=== PATIENT | female | born 2000 | race African-American/Black ===

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

== ENCOUNTER 2020-04-06 11:51 | Emergency (ER) | payer OTHER ==
[2020-04-06 12:20] VITALS: TEMP 98.6; BMI 18.1
--- NOTE | 2020-04-06 13:14 | PDOC ---
History of Present Illness - General Chief Complaint: Pain Stated Complaint: BACK PAIN Time Seen by Provider: 04/06/20 12:40 History Source: Patient Exam Limitations: No Limitations - History of Present Illness Travel History: No Initial Comments: 04/06/20 13:09 HISTORY OF PRESENT ILLNESS: 19-year-old girl with history of thyroid cyst status post thyroidectomy presents emergency department for evaluation of sudden onset right-sided upper abdomen pain radiating to her right mid back. Patient reports the pain came on suddenly reported was a sharp sensation. Patient took Naprosyn 440 mg orally reports her pain is now under control. She states the pain worsens when she changes position most notably from sitting to standing. She denies any nausea, vomiting, dysuria, hematuria, vaginal bleeding or discharge. No recent travel or sick contacts. PAST MEDICAL HISTORY: Thyroid cyst SURGICAL HISTORY: Thyroidectomy ALLERGIES: No known drug allergies REVIEW OF SYSTEMS General/Constitutional: Denies fever or chills. Denies weakness, weight change. HEENT: Denies change in vision. Denies ear pain or discharge. Denies sore throat. Cardiovascular: Denies chest pain or shortness of breath. Respiratory: Denies cough, wheezing, or hemoptysis. Gastrointestinal: See HPI Genitourinary: Denies dysuria, frequency, or change in urination. Musculoskeletal: Denies joint or muscle swelling or pain. Denies neck or back pain. Skin and breasts: Denies rash or easy bruising. Neurologic: Denies headache, vertigo, loss of consciousness, or loss of sensation. Psychiatric: Denies depression or anxiety. Endocrine: Denies increased thirst. Denies abnormal weight change. Hematologic/Lymphatic: Denies anemia, easy bleeding, or history of blood clots. Allergic/Immunologic: Denies hives or skin allergy. Denies latex allergy. PHYSICAL EXAM General Appearance: Well-appearing, appropriately dressed. No apparent distress, no intoxication. Respiratory/Chest: Lungs CTAB. No shortness of breath, chest tenderness, respiratory distress, accessory muscle use. No crackles, rales, rhonchi, stridor, wheezing, dullness Cardiovascular: RRR. S1, S2. No JVD, murmur, bradycardia, tachycardia. Gastrointestinal/Abdominal: Normal bowel sounds. Abdomen soft, non-distended. No tenderness or rebound tenderness. No organomegaly, pulsatile mass, guarding, hernia, hepatomegaly, splenomegaly. Musculoskeletal/Extremities: Normal inspection. FROM of all extremities, normal capillary refill. Pelvis Stable. No CVA tenderness. No tenderness to extremities, pedal edema, swelling, erythema or deformity. Past History - Medical History Allergies/Adverse Reactions: Allergies Allergy/AdvReac Type Severity Reaction Status Date / Time No Known Allergies Allergy Verified 04/06/20 12:11 Home Medications: Ambulatory Orders levoFLOXacin [Levaquin -] 500 mg PO DAILY #7 tablet 04/06/20 COPD: No Thyroid Disease: Yes (LEFT THYROIDECTOMY) - Reproductive History Is Patient Now?: No - Immunization History Immunization Up to Date: Yes - Psycho-Social/Smoking History Smoking History: Never smoked Have you smoked in the past 12 months: No - Substance Abuse Hx (Audit-C & DAST Scrn) How often the patient has a drink containing alcohol: Monthly or less Score: In Men: 4 or > Positive; In Women: 3 or > Positive: 1 Screen Result (Pos requires Nsg. Audit-10AR): Negative In the last yr the pt used illegal drug/Rx for NonMed reason: No Score: Yes response is considered Positive: 0 Screen Result (Positive result requires Nsg. DAST-10): Negative *Physical Exam - Vital Signs Last Vital Signs Temp Pulse Resp BP Pulse Ox 98.6 F 75 18 131/85 96 04/06/20 12:11 04/06/20 12:11 04/06/20 12:11 04/06/20 12:11 04/06/20 12:11 ED Treatment Course - LABORATORY CBC & Chemistry Diagram: 04/06/20 13:40 04/06/20 13:40 - RADIOLOGY Radiology Studies Ordered: Category Date Time Status ABDOMEN US -LIMITED [US] Stat Ultrasound 04/06/20 13:01 Ordered Medical Decision Making - Medical Decision Making 04/06/20 13:13 A/P: 19-year-old girl with sudden onset right mid back/flank/right upper quadrant pain this afternoon Physical exam is grossly unremarkable Differential diagnosis includes but is not limited to-gallstones, cholecystitis, musculoskeletal pain, renal calculi, pyelonephritis Labs Urinalysis, urine , urine culture Limited abdominal ultrasound Reassess 04/06/20 16:32 Laboratory Tests 04/06/20 04/06/20 04/06/20 13:40 13:40 14:00 WBC 4.4 RBC 4.57 Hgb 13.8 Hct 39.4 MCV 86.2 MCH 30.1 MCHC 34.9 RDW 12.8 Plt Count 336 MPV 7.9 Absolute Neuts (auto) 2.4 Neutrophils % 55.6 D Lymphocytes % 34.6 D Monocytes % 7.0 Eosinophils % 2.1 Basophils % 0.7 Nucleated RBC % 0 Sodium 139 Potassium 4.2 Chloride 107 Carbon Dioxide 26 Anion Gap 6 L BUN 13.1 Creatinine 0.8 Est GFR (CKD-EPI)AfAm 123.87 Est GFR (CKD-EPI)NonAf 106.88 Random Glucose 71 L Calcium 9.2 Total Bilirubin 0.4 AST 16 ALT 15 Alkaline Phosphatase 75 Total Protein 7.7 Albumin 4.4 Lipase 94 TSH 2.13 Free T4 0.92 Urine Color Dk yellow Urine Appearance Cloudy Urine pH 5.5 Ur Specific [place] 1.029 Urine Protein 2+ H Urine Glucose (UA) Negative Urine Ketones Trace H Urine Blood 3+ H Urine Nitrite Negative Urine Bilirubin Negative Urine Urobilinogen 1.0 Ur Leukocyte Esterase Trace Urine WBC (Auto) 53 Urine RBC (Auto) 4535 Urine Casts (Auto) 4 U Epithel Cells (Auto) 28 Urine Bacteria (Auto) 92364 Urine HCG, Qual Negative Ultrasound is read by Dr. Vazquez: Gallbladder is adequately distended without intraluminal stones or thickening of its wall. No intra-or extrahepatic biliary duct dilatation is seen. There is mild right renal hydronephrosis and minimal fullness of the left renal pelvicalyceal system. Ultrasound results combined with urinalysis leaves possibility for renal calculi. Noncontrast CT of the abdomen to rule out kidney stones If negative for kidney stones I will treat for pyelonephritis. 04/06/20 18:44 CT of the abdomen and pelvis is read by imaging on-call: Likely a 3 x 5 mm calculus at the right ureter proximally with mild hydronephrosis. Small right renal calculus seen in images 32/131 and mild right hydro- calcinosis. I will contact urology on-call. 04/06/20 18:51 Dr. Gerardo of urology has been paged. 04/06/20 19:12 Case has been discussed with Dr. Gerardo who recommends patient receive a dose of ceftriaxone here and discharged home on Levaquin. Ceftriaxone 1 g IV Discharge home with urology follow-up. I discussed the physical exam findings, ancillary test results and final diagnoses with the patient. I answered all of the patient's questions. The patient was satisfied with the care received and felt comfortable with the discharge plan and treatment plan. The patient will call their primary care physician within 24 hours to arrange follow-up and will return to the Emergency Department with any new, persistent or worsening symptoms. Portions of this note have been documented using voice recognition software. As a result, errors may occur in the seaming machine operator process. Effort has been made to correct all grammatical and seaming machine operator error, but some may have been missed which may produce sporadic inaccurate seaming machine operator or nonsensical phrases. Discharge - Discharge Information Problems reviewed: Yes Clinical Impression/Diagnosis: Kidney stone on right side UTI (urinary tract infection) Qualifiers: Urinary tract infection type: site unspecified Hematuria presence: with hematuria Qualified Code(s): N39.0 - Urinary tract infection, site not specified Condition: Fair Disposition: HOME - Admission No - Additional Discharge Information Prescriptions: levoFLOXacin [Levaquin -] 500 mg PO DAILY #7 tablet - Follow up/Referral Referrals: Lan Garcia [Primary Care Provider] - Jose Gerardo MD., [Staff Physician] - - Patient Discharge Instructions Additional Instructions: Rest, drink lots of fluids: Teas, water, soups Avoid contact with others until fevers and symptoms resolved Lots of handwashing and good hygiene Continue [id number] medications for symptomatic relief Tylenol or Motrin for fever and pain Continue all of antibiotics until completed Followup with urology on Wednesday for repeat urinalysis/reevaluation Return to emergency department for worsened symptoms, fevers, dehydration - Post Discharge Activity
[2020-04-06 14:03] LABS: BASO % 0.7 % (0-2.0); EOS % 2.1 % (0-4.5); HEMATOCRIT 39.4 % (32.4-45.2); HEMOGLOBIN 13.8 GM/dL (10.7-15.3); LYMPH % 34.6 % (8-40); MCH 30.1 pg (25.7-33.7); MCHC 34.9 g/dl (32.0-36.0); MEAN CELL VOLUME 86.2 fl (80-96); MEAN PLT VOLUME 7.9 fl (7.5-11.1); NEUT % 55.6 % (42.8-82.8); PLATELET COUNT 336 K/MM3 (134-434); RBC 4.57 M/mm3 (3.60-5.2); RDW 12.8 % (11.6-15.6); WHITE BLOOD COUNT 4.4 K/mm3 (4.0-10.0)
[2020-04-06 14:37] LABS: HCG,QUALITATIVE URINE Negative
[2020-04-06 14:41] LABS: EPI CELLS 28 /uL (0-25.1); HYALINE CASTS 4 /uL (0-3.1); PH,URINE 5.5 (5.0-8.0); URINE APPEARANCE CLOUDY; URINE BILIRUBIN NEGATIVE (NEGATIVE); URINE COLOR DK YELLOW; URINE GLUCOSE (UA) NEGATIVE (NEGATIVE); URINE KETONE TRACE (NEGATIVE); URINE LEUK ESTERASE TRACE (NEGATIVE); URINE NITRITE NEGATIVE (NEGATIVE); URINE PROTEIN 2+ (NEGATIVE); URINE RBC 4535 /uL (0-23.9); URINE WBC 53 /uL (0-25.8)
[2020-04-06 14:42] LABS: URINE BACTERIA 18020 /uL (0-1359)
[2020-04-06 14:47] LABS: ALBUMIN 4.4 g/dl (3.4-5.0); BLOOD UREA NITROGEN 13.1 mg/dL (7-18); CALCIUM 9.2 mg/dL (8.5-10.1); CREATININE 0.8 mg/dL (0.55-1.3); POTASSIUM 4.2 mmol/L (3.5-5.1); TOT PROT 7.7 g/dl (6.4-8.2)
[2020-04-06 14:57] LABS: BILIRUBIN,TOTAL 0.4 mg/dL (0.2-1)
[2020-04-06] MEDS ORDERED: CEFTRIAXONE 1,000 MG in DEXTROSE 5%-WATER - 50 ML IVPB ONE (19:11)
[2020-04-06] MEDS ORDERED: CEFTRIAXONE 1 GM/50 ML BAG ONE (19:21)
[2020-04-06 19:57] VITALS: BP 124/79; PULSE 73
== END 2020-04-06 19:40 | disposition home or self-care (01) ==
LOC: JER 11:51
DX: N39.0 Urinary tract infection, site not specified (principal); N20.0 Calculus of kidney
CPT/HCPCS: 36415; 74176-TC; 76700-TC; 80053; 81003; 83690; 84439; 84443; 84481; 84703; 85025; 87086; 99285-25

== ENCOUNTER 2020-04-17 04:53 | Day surgery (SDC) | payer OTHER ==
[2020-04-16 16:06] VITALS: BMI 19.1
--- OUTSIDE RECORDS SUMMARY | 2020-04-17 04:56 | XMS ---
:2000 Author Organization [facility] Care Team Providers Name Role Phone Lovig, Cassie Unavailable Unavailable Lovig, Cassie Unavailable Unavailable Lovig, Cassie Unavailable Unavailable Lovig, Cassie Unavailable Unavailable Lovig, Cassie Unavailable Unavailable Lovig, Cassie Unavailable Unavailable Lovig, Cassie Unavailable Unavailable Re-disclosure Warning The records that you are about to access may contain information from federally- assisted alcohol or drug abuse programs. If such information is present, then the following federally mandated warning applies: This information has been disclosed to you from records protected by federal confidentiality rules (42 CFR part 2). The federal rules prohibit you from making any further disclosure of this information unless further disclosure is expressly permitted by the written consent of the person to whom it pertains or as otherwise permitted by 42 CFR part 2. A general authorization for the release of medical or other information is NOT sufficient for this purpose. The Federal rules restrict any use of the information to criminally investigate or prosecute any alcohol or drug abuse patient.The records that you are about to access may contain highly sensitive health information, the redisclosure of which is protected by Article 27-F of the [facility] Public Health law. If you continue you may haveaccess to information: Regarding HIV / AIDS; Provided by facilities licensed or operated by the [facility] Office of Mental Health; or Provided by the [facility] Office for People With Developmental Disabilities. If such information is present, then the following [facility] mandated warning applies: This information has been disclosed to you from confidential records which are protected by state law. State law prohibits you from making any further disclosure of this information without the specific written consent of the person to whom it pertains, or as otherwise permitted by law. Any unauthorized further disclosure in violation of state law may result in a fine or assisted sentence or both. A general authorization for the release of medical or other information is NOT sufficient authorization for further disclosure. Encounters Encounter Providers Location Date Indications Data Source(s ) Outpatient Attender: Cassie Salvador 02/20/2020 [facility] [place] 01:30:00 PM Hospital EDT THYROID CYST Insurance Providers Payer name Policy type Policy ID Covered Covered republican's Policy P deena / Coverage republican ID relationship to Issa Inf ormation type issa AETNA H[place] [id number] [place] [id number] [facility] [id number] - [id number] [facility] [id number] [facility] [id number] [facility] 1199 Problems, Conditions, and Diagnoses Code Display Name Description Problem Type Effective Dates Data Source(s) Z98.890 Other specified Z98.890 Diagnosis 02/20/2020 [facility] postprocedural states 01:42:00 PM ED T Hospital Z85.850 Personal history of Z85.850 Diagnosis 02/20/2020 [place] malignant neoplasm of 01:42:00 PM ED T Hospital thyroid E89.0 Postprocedural E89.0 Diagnosis 02/20/2020 [place] hypothyroidism 01:42:00 PM EDT Hospi ary E04.2 Nontoxic multinodular E04.2 Diagnosis 02/20/2020 [facility] [place] goiter 01:42:00 PM EDT Hospital E04.1 Nontoxic single E04.1 Diagnosis 02/20/2020 [place] [facility] thyroid nodule 01:42:00 PM EDT Hospi ary Results ID Date Data Source [id number] 04/12/2020 11:15:00 AM EDT [facility] Name Value Range Interpretation Description Data Sup porting Code Source(s) Document(s ) SARS [facility] coronavirus 2 RNA This lab was ordered by [facility] and reported by [facility]. ID Date Data Source [id number] 11/09/2019 08:32:00 PM EDT [facility] Name Value Range Interpretation Code Description Data Krystina rce(s) Supporting Document(s ) SARS-CoV-2 [facility] , RNA This lab was ordered by [employer] [facility] and reported by [facility]. Procedure
--- NOTE | 2020-04-17 12:46 | HP ---
History & Physical Update - History History: No Change - Physical Physical: No Change - Assessment Assessment: No Change - Plan Plan: No Change
--- NOTE | 2020-04-17 12:49 | OP ---
Operative Note - Note: Operative Date: 04/17/20 Pre-Operative Diagnosis: R ureteral calculus Operation: R ureteroscopic laser lithotripsy and JJ stent insertion Findings: R ureteral calculus, fragmented partially but retropulsed up into kidney Post-Operative Diagnosis: Same as Pre-op Surgeon: Ricki Velez Anesthesiologist/VAMP THROATER: Vania Joyner Anesthesia: General Specimens Removed: R ureteral calculus Estimated Blood Loss (mls): 0 Drains & Tubes with Location: 6 fr 22 cm R JJ stent Operative Report Dictated: Yes
[2020-04-17] MEDS ORDERED: LIDOCAINE HCL/PF 2% SDV 5ML VIAL ONE (12:58)
[2020-04-17] MEDS ORDERED: PROPOFOL 20 ML ONE (12:59)
[2020-04-17] MEDS ORDERED: MIDAZOLAM HCL 2 MG/2 ML SINGLE DOSE VIAL ONE (12:59)
[2020-04-17] MEDS ORDERED: ceFAZolin SODIUM 1 GM VIAL IVPB ONE (13:20)
[2020-04-17] MEDS ORDERED: ceFAZolin SODIUM 1 GM VIAL ONE (13:32)
[2020-04-17] MEDS ORDERED: oxyCODONE HCL 5 MG TABLET PO PRN (14:12)
[2020-04-17] MEDS ORDERED: ONDANSETRON 4 MG/2 ML VIAL IVPUSH PRN (14:12)
[2020-04-17] MEDS ORDERED: IBUPROFEN 800 MG/8 ML IJ IVPB PRN (14:12)
[2020-04-17] MEDS ORDERED: LACTATED RINGERS SOLUTION 1,000 ML IV SCH (14:15)
[2020-04-17] MEDS ORDERED: IBUPROFEN 400 MG TABLET (FP) PO ONE ×2 (16:02→16:05)
--- NOTE | 2020-04-17 17:21 | OP ---
DATE OF OPERATION: 04/17/2020 PREOPERATIVE DIAGNOSIS: Right ureteral calculus. POSTOPERATIVE DIAGNOSIS: Right ureteral calculus. PROCEDURE: Cystoscopy, right ureteroscopic laser lithotripsy, right Double J stent insertion. SURGEON: Ricki Reyes M.D. FISH CHECKER: None. ANESTHESIA: General via laryngeal mask. ANESTHESIOLOGIST: Vania Joyner MD. SPECIMENS: None. CULTURES: None. DRAINS: 6 [place], 22-cm right Double J stent. ESTIMATED BLOOD LOSS: Negligible. COMPLICATIONS: None. DESCRIPTION OF PROCEDURE: Patient was brought in the operating room, placed on the operating room table in the supine position. After administration of general anesthesia via laryngeal mask, intravenous antibiotics were administered. Sequential compression devices were placed. The patient was placed in the dorsal lithotomy position. The perineum and vagina prepped and draped in usual sterile manner. A 22-[place] cystoscope was inserted into the bladder, with the obturator in place. The obturator was removed. Urine was evacuated. A 30-degree telescope was inserted and cystoscopy was performed. This demonstrated no foreign bodies, tumors, stones, inflammation. Both ureteral orifices were in the usual location with clear efflux but diminished on the right. The right ureteral orifice was cannulated with a 0.038 guidewire, advanced to the level of the right renal pelvis under fluoroscopic and direct visual guidance. Retrograde pyelogram was done, demonstrated no visible stones. There was no hydronephrosis with injection of contrast. There was a small filling defect approximately . Now superstiff guidewire was inserted through the dual lumen catheter, which was then removed. The ureteral access sheath was inserted over the guidewire under fluoroscopic guidance over the superstiff guidewire; however, it would not go beyond the distal ureter. Now this was removed, and the flexible ureteroscope was now inserted over the superstiff guidewire which was advanced to the level of the right ureteropelvic junction. Guidewire was removed, ureteroscopy was done. The proximal ureteral calculus was visualized approximately 4 mm. Laser lithotripsy was done with a 200 micron laser fiber. The stone was fragmented and then the largest fragment was retropulsed into the kidney. The scope could not be advanced any further into the kidney to retrieve the stone, and plan will be to do a lithotripsy on her, an extracorporeal shockwave lithotripsy at a later date. Multiple attempts re-insertion of the access sheath to reach the renal collecting system were attempted, however the ureteral access sheath would not advance beyond the mid proximal ureter, nor would the ureteroscope due to the small caliber ureter without stricture. Now decision was made to put a Double J stent and come back another day for lithotripsy. The ureteroscope was removed and cystoscope back loaded, retrograde pyelogram was done demonstrated no extravasation of contrast, no hydronephrosis. The 6-[place], 24-cm, right double J stent was inserted over the guidewire under direct visual and fluoroscopic guidance leaving 1 coil in the renal pelvis and 1 coil in the bladder. She tolerated the procedure well. The bladder was emptied, and the stent was sutured to the side with suture and Tegaderm. She will follow up in the office tomorrow for stent removal. RICKI REYES M.D. [id number]
[2020-04-17 18:25] VITALS: BP 127/80; PULSE 93; TEMP 98
== END 2020-04-17 18:15 | disposition home or self-care (01) ==
LOC: JASU-SURG 04:53
PROVIDERS: ATTEND Urology
PROC: 0TC68ZZ Extirpation of Matter from Right Ureter, Via Natural or Artificial Opening Endoscopic (ICD-10-PCS; principal; 2020-04-17 13:30)
PROC: 0T768DZ Dilation of Right Ureter with Intraluminal Device, Via Natural or Artificial Opening Endoscopic (ICD-10-PCS; 2020-04-17 13:30)
DX: N20.1 Calculus of ureter (principal)
CPT/HCPCS: 76000-TC-FY; 84703; 94760

== ENCOUNTER 2020-05-07 04:17 | Day surgery (SDC) | payer OTHER ==
[2020-05-06 09:05] VITALS: BMI 19.1
--- OUTSIDE RECORDS SUMMARY | 2020-05-07 04:20 | XMS ---
:2000 Author Organization [facility] Care Team Providers Name Role Phone [...] is protected by Article 27-F of the [facility] Public Health law. If you continue you may haveaccess to information: Regarding HIV / AIDS; Provided by facilities licensed or operated by the [facility] Office of Mental Health; or Provided by the [facility] Office for People With Developmental Disabilities. If such information is present, then the following [facility] mandated warning applies: This information has been [...] law may result in a fine or custodial sentence or both. A general authorization for the release of medical or other information is NOT sufficient authorization for further disclosure. Encounters Encounter Providers Location Date Indications Data Source(s ) Outpatient Attender: Cassie Salvador 02/20/2020 [facility]ROID CYST [facility] [place] 01:30:00 PM Hospital EDT THYROID CYST Insurance Providers Payer name Policy type Policy ID Covered Covered green party's Policy P deena / Coverage green party ID relationship to Issa Inf ormation type issa AETNA HMO [id number] [place] [id number] LOCAL [id number] [facility] LOCAL [id number] FA [id number] 1199[facility] [id number] 1[facility] 1199 Problems, Conditions, and Diagnoses Code Display Name Description Problem Type Effective Dates Data Source(s) Z98.890 Other specified Z98.890 Diagnosis 02/20/2020 [place] [facility] postprocedural states 01:42:00 PM ED T Hospital Z85.850 Personal history of Z85.850 Diagnosis 02/20/2020 [place] malignant neoplasm of 01:42:00 PM ED T Hospital thyroid E89.0 Postprocedural E89.0 Diagnosis 02/20/2020 [place] hypothyroidism 01:42:00 PM EDT Hospi ary E04.2 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 ID Date Data Source [id number] 04/12/2020 11:15:00 AM EDT [facility] Name Value Range Interpretation Description Data Sup porting Code Source(s) Document(s ) SARS [facility] coronavirus 2 RNA This lab was ordered by [facility] and reported by [facility]. ID Date Data Source [id number] 11/09/2019 08:32:00 PM EDT [facility] Name Value Range Interpretation Code Description Data Krystina rce(s) Supporting Document(s ) SARS-CoV-2 [facility] , RNA This lab was ordered by [facility] and reported by [facility]. Procedure
--- NOTE | 2020-05-07 08:13 | HP ---
History & Physical Update - History History: No Change - Physical Physical: No Change - Assessment Assessment: No Change - Plan Plan: No Change
--- NOTE | 2020-05-07 08:14 | OP ---
Operative Note - Note: Operative Date: 05/07/20 Pre-Operative Diagnosis: R renal calculus Operation: ESWL R Findings: radiolucent 3-4 mm R LP renal calculus Surgeon: Ricki Velez Anesthesiologist/SCIENTIFIC ARTIST: Lisa Swenson Anesthesia: MAC Estimated Blood Loss (mls): 0 Operative Report Dictated: Yes
[2020-05-07] MEDS ORDERED: MIDAZOLAM HCL 2 MG/2 ML SINGLE DOSE VIAL ONE (09:00)
[2020-05-07] MEDS ORDERED: PROPOFOL 20 ML ONE ×2 (09:00)
--- NOTE | 2020-05-07 10:45 | OP ---
DATE OF OPERATION: 05/07/2020 PREOPERATIVE DIAGNOSIS: Right renal calculus. POSTOPERATIVE DIAGNOSIS: Right renal calculus. PROCEDURE: Extracorporeal shockwave lithotripsy, right renal calculus. SURGEON: Ricki Reyes MD DIESEL SCOOP OPERATOR: None. ANESTHESIA: IV sedation. ANESTHESIOLOGIST: EJNNIFER Rees SPECIMENS: None. CULTURES: None. DRAINS: None. ESTIMATED BLOOD LOSS: None. COMPLICATIONS: None. PROCEDURE IN DETAIL: Patient brought in the operating room, placed on the operating table in the supine position. After administration of intravenous sedation, patient was positioned over the treatment head under both fluoroscopic and ultrasound guidance. A 3- to 4-mm right lower pole renal calculus was identified, targeted and delivered 2500 shocks of maximum kilovoltage with excellent fragmentation. She tolerated procedure well, transferred to the recovery room in stable condition. RICKI REYES M.D. [id number]
[2020-05-07 11:41] VITALS: TEMP 97
[2020-05-07 14:51] VITALS: BP 120/70; PULSE 70
== END 2020-05-07 12:15 | disposition home or self-care (01) ==
LOC: JASU-SURG 04:17
PROVIDERS: ATTEND Urology
PROC: 0TF3XZZ Fragmentation in Right Kidney Pelvis, External Approach (ICD-10-PCS; principal; 2020-05-07 09:30)
DX: N20.0 Calculus of kidney (principal)
CPT/HCPCS: 84703

== ENCOUNTER 2023-02-24 20:29 | Emergency (ER) | payer OTHER ==
[2023-02-24 20:35] VITALS: BP 127/81; PULSE 85; RESP 18; TEMP 98.9; BMI 21.4
== END 2023-02-25 00:01 | disposition home or self-care (01) ==
LOC: JERFT 20:29
DX: R05.9 Cough, unspecified (principal); R07.89 Other chest pain
CPT/HCPCS: 71046-TC-FY; 99283-25